=== PATIENT | male | born 1945 | race African-American/Black ===

== ENCOUNTER 2020-01-08 00:11 | Observation (INO) ==
[2020-01-08] MEDS ORDERED: EPINEPHrine 1 MG/ML VIAL IM ONE (00:27)
[2020-01-08] MEDS ORDERED: methylPREDNISolone 125 MG/2 ML VIAL IVP ONE (00:31)
[2020-01-08] MEDS ORDERED: Famotidine 20 MG/2 ML VIAL IVP ONE (00:31)
[2020-01-08 01:31] LABS: Basophils % 0.3 %; Eosinophils # 0.3 K/mcL (0.0-0.6); Eosinophils % 4.9 %; Hematocrit 37.1 % (37.5-50.1); Hemoglobin 12.3 g/dL (12.9-16.9); Immature Granulocytes % 0.2 % (0-4); Lymphocytes # 1.6 K/mcL (0.6-4.6); Lymphocytes % 28.1 %; Mean Corpuscular HGB Conc 33.2 g/dL (31.6-35.5); Mean Corpuscular Hemoglobin 28.8 pg (28.0-33.3); Mean Corpuscular Volume 86.9 fL (83.0-100.0); Monocytes # 0.6 K/mcL (0.0-1.3); Monocytes % 9.6 %; Neutrophils # 3.3 K/mcL (1.6-8.9); Platelet Count 201 K/mcL (140-400); Red Blood Count 4.27 M/mcL (4.19-5.50); Red Cell Distribution Width 14.1 % (11.5-14.5); Segmented Neutrophils % 56.9 %; White Blood Count 5.7 K/mcL (4.3-11.1)
[2020-01-08 01:50] LABS: BUN/Creatinine Ratio 18 (6-26); Blood Urea Nitrogen 25 mg/dL (8-23); Calcium 9.4 mg/dL (8.6-10.3); Carbon Dioxide 26 mEq/L (23-29); Chloride 101 mEq/L (98-107); Glucose 93 mg/dL (70-105); Osmolality,Calculated 282 (280-300); Potassium 4.7 mEq/L (3.5-5.1); Sodium 134 mEq/L (136-145); eGFR For African Americans > 60 (> 60); eGFR For Non-African Americans 51 (> 60)
[2020-01-08] MEDS ORDERED: Naloxone 0.4 MG/ML INJ IVP PRN (04:06)
[2020-01-08] MEDS ORDERED: *HR* Dextrose 50 % in Water (Vial) 50 ML VIAL IVP PRN (04:09)
[2020-01-08] MEDS ORDERED: D5% in Water 1,000 ML IVC PRN (04:09)
[2020-01-08] MEDS ORDERED: Dextrose Gel 15 GM/37.5 ML TUBE PO PRN ×2 (04:09)
[2020-01-08] MEDS: Insulin LISPRO 300 UNITS/3 ML VIAL SQ SCH ×4 (05:04→23:16)
[2020-01-08 05:20] LABS: INR 0.9; Prothrombin Time 10.4 Seconds (9.4-12.1)
[2020-01-08] MEDS: *HR* Heparin 5,000 UNIT/ML VIAL SQ SCH ×3 (05:22→21:16)
[2020-01-08 05:23] LABS: Activated Partial Thrombo Time 33.4 Seconds (26.0-36.0)
[2020-01-08 05:30] LABS: Magnesium 1.9 mg/dL (1.6-2.6); Phosphorous 3.5 mg/dL (2.7-4.5)
[2020-01-08] MEDS ORDERED: hydrOXYzine pamoate 25 MG CAPSULE PO PRN (07:33)
[2020-01-08] MEDS ORDERED: Mag Hydrox/Al Hydrox/Simeth 30 ML UDC PO PRN (07:33)
[2020-01-08] MEDS: BuPROPion XL (24 HR) 150 MG TABLET PO SCH (07:57)
[2020-01-08] MEDS: amLODIPine 5 MG TABLET PO SCH (08:00)
[2020-01-08] MEDS: Gabapentin 300 MG CAPSULE PO SCH (08:05)
[2020-01-08] MEDS: Nicotine 14 MG PATCH.TD24 TD SCH (08:15)
[2020-01-08 08:59] LABS: Estimated Average Glucose 126 mg/dl
[2020-01-08 09:16] LABS: Bilirubin,Urine Negative (Negative); Blood,Urine Negative (Negative); Clarity,Urine Clear (Clear); Color,Urine Light-Yellow (Yellow); Glucose,Urine (UA) Normal (Normal); Ketones,Urine Negative (Negative); Leukocyte Esterase,Urine Negative (Negative); Nitrite,Urine Negative (Negative); PH,Urine 6.5 pH Units (5.0-8.0); Protein,Urine Negative (Neg-Trace); Urobilinogen,Urine Normal (Normal)
[2020-01-08] MEDS ORDERED: Famotidine 20 MG/2 ML VIAL IVP SCH (12:00)
[2020-01-08] MEDS: Famotidine 20 MG/2 ML VIAL IVP SCH ×2 (12:42→21:16)
[2020-01-08] MEDS ORDERED: Gabapentin 300 MG CAPSULE PO SCH (21:00)
[2020-01-08] MEDS ORDERED: PARoxetine 20 MG TABLET PO SCH (21:00)
[2020-01-08] MEDS ORDERED: Melatonin 3 MG TABLET PO SCH (21:00)
[2020-01-09 02:46] LABS: BUN/Creatinine Ratio 20 (6-26); Blood Urea Nitrogen 26 mg/dL (8-23); Carbon Dioxide 23 mEq/L (23-29); Chloride 105 mEq/L (98-107); Glucose 109 mg/dL (70-105); Osmolality,Calculated 285 (280-300); Potassium 4.4 mEq/L (3.5-5.1); Sodium 135 mEq/L (136-145); eGFR For African Americans > 60 (> 60); eGFR For Non-African Americans 55 (> 60)
[2020-01-09] MEDS: *HR* Heparin 5,000 UNIT/ML VIAL SQ SCH (03:10)
[2020-01-09] MEDS: Insulin LISPRO 300 UNITS/3 ML VIAL SQ SCH (03:10)
[2020-01-09 06:25] VITALS: BP 139/64
[2020-01-09] MEDS: BuPROPion XL (24 HR) 150 MG TABLET PO SCH (08:38)
[2020-01-09] MEDS: amLODIPine 5 MG TABLET PO SCH (08:38)
[2020-01-09] MEDS: Gabapentin 300 MG CAPSULE PO SCH (08:38)
[2020-01-09] MEDS: Nicotine 14 MG PATCH.TD24 TD SCH (08:39)
[2020-01-09] MEDS: Famotidine 20 MG/2 ML VIAL IVP SCH (08:40)
== END 2020-01-09 15:16 | disposition home or self-care (01) ==
LOC: 3BNU 00:11 → EMEROOARM 00:11 → 3BNU 04:19
PROVIDERS: ADMIT Family Medicine; ATTEND Family Medicine

== ENCOUNTER 2021-02-16 12:57 | Observation (INO) ==
[2021-02-16] MEDS ORDERED: Aspirin 81 MG TAB.CHEW PO ONE (13:16)
[2021-02-16] MEDS ORDERED: 0.9 % Sodium Chloride 500 ML IVC ONE (13:16)
[2021-02-16 14:13] LABS: Bilirubin,Urine Negative (Negative); Blood,Urine Negative (Negative); Clarity,Urine Clear (Clear); Color,Urine Light-Yellow (Yellow); Glucose,Urine (UA) Normal (Normal); Ketones,Urine Negative (Negative); Leukocyte Esterase,Urine Negative (Negative); Nitrite,Urine Negative (Negative); PH,Urine 6.5 pH Units (5.0-8.0); Protein,Urine Negative (Neg-Trace); Specific Gravity,Urine 1.013 (1.010-1.025); Urobilinogen,Urine Normal (Normal)
[2021-02-16 14:13] LABS: Basophils % 0.8 %; Eosinophils # 0.3 K/mcL (0.0-0.6); Eosinophils % 7.1 %; Hematocrit 37.6 % (37.5-50.1); Hemoglobin 12.3 g/dL (12.9-16.9); Immature Granulocytes % 0.3 % (0-4); Lymphocytes % 24.4 %; Mean Corpuscular HGB Conc 32.7 g/dL (31.6-35.5); Mean Corpuscular Hemoglobin 28.1 pg (28.0-33.3); Mean Corpuscular Volume 85.8 fL (83.0-100.0); Mean Platelet Volume 11.1 fL (9.4-12.4); Monocytes # 0.4 K/mcL (0.0-1.3); Monocytes % 10.8 %; Neutrophils # 2.3 K/mcL (1.6-8.9); Platelet Count 157 K/mcL (140-400); Red Blood Count 4.38 M/mcL (4.19-5.50); Red Cell Distribution Width 14.7 % (11.5-14.5); Segmented Neutrophils % 56.6 %
[2021-02-16 14:34] LABS: BUN/Creatinine Ratio 16 (6-26); Blood Urea Nitrogen 17 mg/dL (8-23); Calcium 9.4 mg/dL (8.6-10.3); Carbon Dioxide 29 mEq/L (23-29); Chloride 107 mEq/L (98-107); Glucose 81 mg/dL (70-105); Osmolality,Calculated 291 (280-300); Potassium 4.3 mEq/L (3.5-5.1); Sodium 140 mEq/L (136-145); Troponin I < 0.03 ng/mL (< 0.04); eGFR For African Americans > 60 (> 60); eGFR For Non-African Americans > 60 (> 60)
[2021-02-16] MEDS ORDERED: Isovue-370 500 ML BOTTLE IVP ONE (14:58)
[2021-02-16] MEDS ORDERED: Naloxone 0.4 MG/ML INJ IVP PRN (17:48)
[2021-02-16] MEDS ORDERED: Dextrose Gel 15 GM/37.5 ML TUBE PO PRN ×2 (17:50)
[2021-02-16] MEDS ORDERED: D5% in Water 1,000 ML IVC PRN (17:50)
[2021-02-16] MEDS ORDERED: *HR* Dextrose 50 % in Water (Syg) 50 ML SYRINGE IVP PRN (17:50)
[2021-02-16] MEDS ORDERED: Perflutren Lipid Microsphere 1.3 ML in 0.9 % Sodium Chloride 8.7 ML IVP PRN (17:51)
[2021-02-16 17:57] LABS: Influenza A PCR Negative (Negative); Influenza B PCR Negative (Negative); Resp. Syncytial Virus PCR Negative (Negative)
[2021-02-16 18:02] LABS: SARS-CoV-2 by PCR (In House) Negative (Negative)
[2021-02-17 02:31] LABS: Hematocrit 33.5 % (37.5-50.1); Hemoglobin 11.5 g/dL (12.9-16.9); Mean Corpuscular HGB Conc 34.3 g/dL (31.6-35.5); Mean Corpuscular Volume 84.6 fL (83.0-100.0); Mean Platelet Volume 10.8 fL (9.4-12.4); Platelet Count 164 K/mcL (140-400); Red Blood Count 3.96 M/mcL (4.19-5.50); Red Cell Distribution Width 14.8 % (11.5-14.5); White Blood Count 4.8 K/mcL (4.3-11.1)
[2021-02-17 02:52] LABS: BUN/Creatinine Ratio 15 (6-26); Blood Urea Nitrogen 15 mg/dL (8-23); Calcium 8.7 mg/dL (8.6-10.3); Carbon Dioxide 26 mEq/L (23-29); Chloride 109 mEq/L (98-107); Chol/HDL Ratio 2.7 (0-4.9); Cholesterol 109 mg/dL (< 200); Glucose 96 mg/dL (70-105); HDL Cholesterol 41 mg/dL (40-59); LDL Cholesterol,Calculated 55 mg/dL (< 100); Osmolality,Calculated 291 (280-300); Potassium 4.3 mEq/L (3.5-5.1); Sodium 140 mEq/L (136-145); Triglycerides 63 mg/dL (< 150); eGFR For African Americans > 60 (> 60); eGFR For Non-African Americans > 60 (> 60)
[2021-02-17] MEDS ORDERED: *HR* Heparin 5,000 UNIT/ML VIAL SQ SCH (06:00)
[2021-02-17] MEDS ORDERED: Regadenoson 0.4 MG/5 ML SYRINGE IVP ONE (06:22)
[2021-02-17] MEDS: Insulin LISPRO 300 UNITS/3 ML VIAL SUBQ SCH ×2 (10:49→13:19)
[2021-02-17 14:50] VITALS: BP 166/74; PULSE 59; TEMP 98.8; O2SAT 98
== END 2021-02-17 18:27 | disposition other institution (70) ==
LOC: 3BNU 12:57 → EMEROOARM 12:57 → SUATTDRO 18:37 → 3BNU 19:44
PROVIDERS: ADMIT Internal Medicine; ATTEND Registered Nurse